=== PATIENT | female | born 1970 | race Caucasian/White ===

== ENCOUNTER 2017-11-18 18:40 | Inpatient (IN) | payer OTHER ==
[~2017-11-18] VITALS: Ht 165.1 cm; Wt 65.8 kg
[~2017-11-18 18:40] MED LIST: CEFADROXIL500 MG PO; CYMBALTA60 MG; INTESTINEX680 MG PO; LEVSIN/SL0.125 MG PO; NASACORT AQ16.5 GM NS; PROVENTIL HFA6.7 GM IH; WELLBUTRIN XL300 MG PO; XANAX1 MG PO; [UNRECOGNIZED DRUG - OTHER] PO
[2017-11-28] MEDS ORDERED: ZANTAC150 M3 PO (17:23)
[2017-11-28] MEDS ORDERED: PROTONIX40 MG PO (17:23)
[2017-11-28] MEDS ORDERED: PANCREAZE PO (17:24)
[2017-11-28] MEDS ORDERED: NICODERM CQ1 EAC1 TD (17:26)
== END 2017-11-28 18:54 | disposition home or self-care (01) | DRG 438 ==
LOC: ER 18:40 → MEDJ 11-19 12:45
PROC: BW40ZZZ Ultrasonography of Abdomen (ICD-10-PCS; principal; 2017-11-19)
DX: K85.20 Alcohol induced acute pancreatitis without necrosis or infection (principal); K44.1 Diaphragmatic hernia with gangrene; K21.9 Gastro-esophageal reflux disease without esophagitis

== ENCOUNTER 2018-05-18 10:36 | Emergency (ER) | payer OTHER ==
[~2018-05-18] VITALS: Ht 154.9 cm; Wt 68.0 kg
[~2018-05-18 10:36] MED LIST changes: +NICODERM CQ1 EAC1 TD; +PANCREAZE PO; +PROTONIX40 MG PO; +ZANTAC150 M3 PO
== END 2018-05-18 17:31 | disposition home or self-care (01) ==
LOC: ER 10:36
DX: B34.9 Viral infection, unspecified (principal)

== ENCOUNTER 2018-09-06 10:47 | Outpatient (CLI) | payer OTHER | END 2018-09-06 11:04 | disposition home or self-care (01) | LOC: NUCLEAR 10:47 | DX: M81.0 Age-related osteoporosis without current pathological fracture (principal); Z13.820 Encounter for screening for osteoporosis ==

== ENCOUNTER 2018-11-09 06:27 | Inpatient (IN) | payer OTHER ==
[~2018-11-09] VITALS: Ht 154.9 cm; Wt 68.0 kg
--- NOTE | 2018-11-09 06:34 | NUR ---
PTE ALERTA Y ORIENTADA X 3 ESFERAS QUIEN REFIERE DOLOR ABDOMINAL QUE SE IRRADIA HACIA LA ESPALDA Y NAUSEAS DESDE ANOCHE.REFIERE HISTORIAL DE PANCREATITIS Y QUE LOS SITNTOMAS SON IGUALES.
--- NOTE | 2018-11-09 07:46 | NUR ---
PACIENTE ALERTA Y ORIENTADA X3, CON BUEN PATRON RESPIRATORIO Y ESABLE SE LE NICHOLE MUESTRAS MARTIN ORDENADO CMP, CBC, AMILASA, LIPASA Y U/A. SE ABRE VENA BAJO MEDIDAS ASEPTICAS PATENTE Y KENTRELL DE EDEMA CON ANGIO #18 EN ANTEBRAZO ISADORA Y SE COLOCA A BAJAR UN D5W/0.9NSS AT 150ML/HR. SE ADMINISTRA MEDICAMENTOS MARTIN ORDENADO DEMEROL 50MG, PHENERGAN 50MG Y PEPCID 20MG. SE ELVIRA TRANQUILA EN CAMA Y CON BARANDAS ELEVADAS.
--- NOTE | 2018-11-09 15:12 | NUR ---
PACIENTE ALERTA Y OREINTADA POR TOMAS ESFERAS EN LUIS ENRIQUE CON BARANDAS ELEVADAS POR BARCLAY SEGURIDAD EN COMPANIA DE FAMILIAR. SE OBSERVA CON BUEN PATRON RESPIRATORIO. IVF'S PATENTE D5-.9NSS @ 150ML/HR. PENDIENTE CONSULTA CON DR. MACARIO.
== END 2018-11-19 13:21 | disposition home or self-care (01) | DRG 391 ==
LOC: ER 06:27 → MEDI 17:57 → MEDJ 17:57 → MEDI 11-12 14:25
PROVIDERS: ADMIT Internal Medicine
PROC: BW40ZZZ Ultrasonography of Abdomen (ICD-10-PCS; 2018-11-09)
PROC: 4A12X4Z Monitoring of Cardiac Electrical Activity, External Approach (ICD-10-PCS; 2018-11-12)
PROC: 8E0ZXY6 Isolation (ICD-10-PCS; 2018-11-14)
PROC: 0DB68ZX Excision of Stomach, Via Natural or Artificial Opening Endoscopic, Diagnostic (ICD-10-PCS; principal; 2018-11-16)
PROC: BW21Y0Z Computerized Tomography (CT Scan) of Abdomen and Pelvis using Other Contrast, Unenhanced and Enhanced (ICD-10-PCS; 2018-11-18)
DX: K30 Functional dyspepsia (principal); K85.20 Alcohol induced acute pancreatitis without necrosis or infection; N39.0 Urinary tract infection, site not specified; K21.9 Gastro-esophageal reflux disease without esophagitis; R74.8 Abnormal levels of other serum enzymes; B95.2 Enterococcus as the cause of diseases classified elsewhere; R31.29 Other microscopic hematuria

== ENCOUNTER 2018-11-24 19:21 | Inpatient (IN) | payer OTHER ==
[~2018-11-24] VITALS: Ht 154.9 cm; Wt 68.0 kg
--- NOTE | 2018-11-24 19:29 | NUR ---
SE RECIBE PTE FEMINA ALERTA Y ORIENTADA X3 QUIEN REFIERE DOLOR ABDOMINAL MERT DESDE HOY.
--- NOTE | 2018-11-24 20:18 | NUR ---
SE EDUCA A APTE SOBRE TX EMDICO ESTA REFIERE ETNENDER. SE NICHOLE MUESTRAS DE LABORATORIO UTILZIADNO MEDDIAS ASEPTICAS Y SE ADMINISTRA MEDICAMENTO A PTE LO CUAL TOLERA.
--- NOTE | 2018-11-25 00:20 | NUR ---
SE RECIBE PTE ALERTA Y ORIENTADA X3, COLOCADA EN LUIS ENRIQUE CON BARANDAS ELEVADAS Y INTERCOM ACCESIBLE. SE OBSERVA PTE CONECTADA A MONITOR CARDIACO Y OXIMETRIA DE PULSO. PTE EN OBSERVACION POR PANCREATITIS. SE LE REALIZA LA SARAH DE S/V Y SE DOCUMENTAN. PTE NO PRESENTA EDEMA O ERITEMA EN PIEL, PUPILAS REACTIVAS A LA CISCO,MOVIMIENTOS EN EXTREMIDADES SUPERIORES E INFERIORES Y OUTPUT DE ORINA ESPONTANEA. SE LE VERIFICA AREA DE VENOPUNCION LA CUAL SE ENCONTRO PATENTE,KENTRELL DE EDEMA O ERITEMA BAJANDO UN .9 A 100ML/HR EN BRAZO L+.
--- NOTE | 2018-11-25 09:43 | NUR ---
PACIENTE AL MOMENTO ESTABLE, ALERTA Y ORIENTADA X3 ACOMPANADA DE FAMILIAR, AL MOMENTO TOLERANDO TX MEDICO ORDENADO.
== END 2018-12-11 19:30 | disposition home or self-care (01) | DRG 439 ==
LOC: ER 19:21 → MEDI 11-25 10:23
PROVIDERS: ADMIT Internal Medicine
PROC: 02HV33Z Insertion of Infusion Device into Superior Vena Cava, Percutaneous Approach (ICD-10-PCS; principal; 2018-11-27)
PROC: 3E0336Z Introduction of Nutritional Substance into Peripheral Vein, Percutaneous Approach (ICD-10-PCS; 2018-11-27)
PROC: BF37ZZZ Magnetic Resonance Imaging (MRI) of Pancreas (ICD-10-PCS; 2018-11-28)
PROC: CF1C1ZZ Planar Nuclear Medicine Imaging of Hepatobiliary System, All using Technetium 99m (Tc-99m) (ICD-10-PCS; 2018-11-30)
DX: K85.20 Alcohol induced acute pancreatitis without necrosis or infection (principal); N39.0 Urinary tract infection, site not specified; A08.8 Other specified intestinal infections; F41.0 Panic disorder [episodic paroxysmal anxiety]; Z45.2 Encounter for adjustment and management of vascular access device; F10.21 Alcohol dependence, in remission; K21.9 Gastro-esophageal reflux disease without esophagitis; B95.2 Enterococcus as the cause of diseases classified elsewhere; K82.8 Other specified diseases of gallbladder; R94.5 Abnormal results of liver function studies; R10.13 Epigastric pain

== ENCOUNTER 2019-10-29 07:35 | Emergency (ER) | payer OTHER ==
[~2019-10-29] VITALS: Ht 154.9 cm; Wt 58.1 kg
[2019-10-29] MEDS ORDERED: CYMBALTA (07:50)
[2019-10-29] MEDS ORDERED: XANAX1 MG PO (07:51)
[2019-10-29] MEDS ORDERED: PROTONIX40 MG PO (07:52)
[2019-10-29] MEDS ORDERED: DOLOGEN CAPLET1 EACH PO (10:06)
== END 2019-10-29 11:31 | disposition home or self-care (01) ==
LOC: ER 07:35
DX: S93.402A Sprain of unspecified ligament of left ankle, initial encounter (principal); X50.9XXA Other and unspecified overexertion or strenuous movements or postures, initial encounter; Y93.89 Activity, other specified; Y92.69 Other specified industrial and construction area as the place of occurrence of the external cause; Y99.8 Other external cause status

== ENCOUNTER → 2020-10-14 | Outpatient (CLI) | payer OTHER ==
[~2020-10-14] MED LIST changes: +CYMBALTA; +DOLOGEN CAPLET1 EACH PO
== END | disposition home or self-care (01) ==
LOC: OFIC 805 11:36
PROVIDERS: ATTEND Otolaryngology Otology & Neurotology
DX: H90.3 Sensorineural hearing loss, bilateral (principal); H92.02 Otalgia, left ear; H61.23 Impacted cerumen, bilateral

== ENCOUNTER 2024-12-24 07:38 | Outpatient (CLI) | payer OTHER | END 2024-12-24 08:02 | disposition home or self-care (01) | LOC: MAMO-SONO 07:38 | DX: N64.51 Induration of breast (principal); Z12.31 Encounter for screening mammogram for malignant neoplasm of breast; N83.00 Follicular cyst of ovary, unspecified side; R10.2 Pelvic and perineal pain; N95.1 Menopausal and female climacteric states; R10.9 Unspecified abdominal pain; R10.30 Lower abdominal pain, unspecified; K59.04 Chronic idiopathic constipation; M54.50 Low back pain, unspecified; M43.16 Spondylolisthesis, lumbar region; M25.512 Pain in left shoulder ==

== ENCOUNTER → 2024-12-24 09:43 | Outpatient (CLI) | payer OTHER ==
[2024-12-24 10:36] LABS: CREATININE SERUM 0.62 mg/dL (0.55-1.02)
== END | disposition home or self-care (01) ==
LOC: LAB 09:43
DX: R10.84 Generalized abdominal pain (principal)